=== PATIENT | male | born 1930 | race Caucasian/White ===

== ENCOUNTER 2017-05-28 07:05 | Day surgery (SDC) | payer OTHER ==
[~2017-05-28] VITALS: Ht 167.6 cm; Wt 75.8 kg
[~2017-05-28 07:05] MED LIST: ASPI81EC PO; CIPR500 PO; CLOP75 PO; LOVA40 PO; METO50 PO; PHENA200 PO; TAMS.4ER PO; TRAM50 PO
== END 2017-05-28 09:06 | disposition home or self-care (01) ==
LOC: ORSCSDS 07:05
PROVIDERS: Ophthalmology
PROC: 08RJ3JZ Replacement of Right Lens with Synthetic Substitute, Percutaneous Approach (ICD-10-PCS; principal; 2017-05-28 08:30)
DX: H25.11 Age-related nuclear cataract, right eye (principal); H21.81 Floppy iris syndrome; I10 Essential (primary) hypertension; I25.10 Atherosclerotic heart disease of native coronary artery without angina pectoris; Z95.1 Presence of aortocoronary bypass graft; Z79.82 Long term (current) use of aspirin; Z79.899 Other long term (current) drug therapy; Z87.891 Personal history of nicotine dependence
CPT/HCPCS: J2250; J3010; J3301; J7040; V2632

== ENCOUNTER 2017-07-02 06:41 | Day surgery (SDC) | payer OTHER ==
[~2017-07-02] VITALS: Ht 167.6 cm; Wt 77.2 kg
[2017-07-02] MEDS ORDERED: ASPI81CH (06:58)
== END 2017-07-02 08:33 | disposition home or self-care (01) ==
LOC: ORSCSDS 06:41
PROVIDERS: Ophthalmology
PROC: 08RK3JZ Replacement of Left Lens with Synthetic Substitute, Percutaneous Approach (ICD-10-PCS; principal; 2017-07-02 08:00)
DX: H25.12 Age-related nuclear cataract, left eye (principal); H21.81 Floppy iris syndrome; I10 Essential (primary) hypertension; I25.10 Atherosclerotic heart disease of native coronary artery without angina pectoris; Z79.82 Long term (current) use of aspirin; Z79.899 Other long term (current) drug therapy
CPT/HCPCS: J2250; J3010; J3301; J7040; V2632

== ENCOUNTER 2018-05-14 06:01 | Day surgery (SDC) | payer OTHER ==
[~2018-05-14] VITALS: Ht 167.6 cm; Wt 78.6 kg
[~2018-05-14 06:01] MED LIST changes: +ASPI81CH; +PRAV20 PO
--- NOTE | 2018-05-14 11:00 | NUR ---
PT AMB APPROX 200FT /C SBA. TOLERATED WELL. -BLEEDING OR SWELLING R GROIN AREA.
--- NOTE | 2018-05-14 11:31 | NUR ---
PT AND VERBALIZED UNDERSTANDING OF WRITTEN AND VERBAL D/C INST. IV REMOVED. -BLEEDING OR SWELLING R GROIN AREA. PT TAKEN OUT OF THE [facility] VIA W/C.
== END 2018-05-14 11:30 | disposition home or self-care (01) ==
LOC: MHTC 06:01
DX: I73.9 Peripheral vascular disease, unspecified (principal); I10 Essential (primary) hypertension; E78.5 Hyperlipidemia, unspecified
CPT/HCPCS: 37224; 75625; 75716; 75774; 85347; 99152; 99153; C1725; C1760; C1769; C1887; C1894; C2623; J1644; J2250; J3010; J7030; J7040; Q9967

== ENCOUNTER 2019-01-08 07:19 | Day surgery (SDC) | payer OTHER ==
[~2019-01-08] VITALS: Ht 167.6 cm; Wt 75.5 kg
[~2019-01-08 07:19] MED LIST changes: -ASPI81CH; +ASPI81CH PO; +ROSU10TA PO
--- NOTE | 2019-01-08 07:48 | NUR ---
History, Chart, Medications and Allergies reviewed before start of procedure. Patient confirms NPO status and agrees with scheduled surgery. Patient States Post-Procedure ride home has been arranged with .
--- NOTE | 2019-01-08 11:47 | NUR ---
Patient up to Ambulate independently. Gait steady. Discharge instructions reviewed with patient. Patient verbalizes understanding. Copy given to patient to take home. Patient States Post-Procedure ride home has been arranged. Discharged via wheelchair to private car for ride home.
== END 2019-01-08 22:43 | disposition home or self-care (01) ==
LOC: ORSCMMR 07:19 → ORD 08:45 → ORSCMMR 22:43
PROVIDERS: Surgery
PROC: 0YU60JZ Supplement Left Inguinal Region with Synthetic Substitute, Open Approach (ICD-10-PCS; principal; 2019-01-08 08:45)
DX: K40.31 Unilateral inguinal hernia, with obstruction, without gangrene, recurrent (principal); I10 Essential (primary) hypertension; I25.10 Atherosclerotic heart disease of native coronary artery without angina pectoris; Z79.899 Other long term (current) drug therapy; Z79.82 Long term (current) use of aspirin
CPT/HCPCS: A9270-GY; C1781; J0690; J1100; J2370; J2405; J2704; J2710; J3010; J7120

== ENCOUNTER → 2020-04-12 | Outpatient (CLI) | payer OTHER | END | disposition home or self-care (01) | LOC: PLD 11:10 → LAB SHORT 11:10 | DX: L57.0 Actinic keratosis (principal) | CPT/HCPCS: 88305 ==